=== PATIENT | female | born 1985 | race Caucasian/White ===

== ENCOUNTER 2019-08-18 13:37 | Emergency (ER) | payer SELFPAY ==
[2019-08-18 13:44] VITALS: BP 148/97; PULSE 119; RESP 20; TEMP 37.2; O2SAT 99
--- NOTE | 2019-08-18 14:08 | ED.SKABFB ---
HPI - Skin/Abscess/Foreign Bdy <ROQUE Mendoza - Last Filed: 08/18/19 14:26> General Chief complaint: Skin/Abscess/Foreign Body Stated complaint: right lower leg bites today Time Seen by Provider: 08/18/19 13:44 Source: patient Mode of arrival: Ambulatory Limitations: no limitations History of Present Illness HPI narrative: The patient is a 34-year-old female current everyday smoker who presents with her significant other for chief complaint of a possible spider bite of her right lower leg. She states she knows earlier today, had extending redness. She denies any fevers, complains of subjective chills, no nausea vomiting diarrhea. She denies any chest pain or shortness of breath. 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 Patient refuses consent for triage nurse today test. Related Data Previous Rx's Medication Instructions Recorded cephalexin 500 mg PO TID 10 Days #30 cap 08/18/19 doxycycline hyclate 100 mg PO BID #20 cap 08/18/19 Allergies Allergy/AdvReac Type Severity Reaction Status Date / Time amoxicillin AdvReac Verified 08/18/19 13:50 Review of Systems <JOHNNIE Mendoza - Last Filed: 08/18/19 14:26> Review of Systems Narrative: GENERAL: Denies chills, fatigue, malaise, fever, sweats. HEENT: Denies sinus pain, ear pain, sore throat, difficulty swallowing, dizziness. RESPIRATORY: Denies dyspnea, cough, wheezing, hemoptysis, sputum. CARDIOVASCULAR: Denies chest pain, palpitations, orthopnea, edema, GASTROINTESTINAL: Denies nausea, vomiting, abdominal pain, diarrhea, constipation, melena. : Denies dysuria, frequency, incontinence, hematuria, urinary retention. MUSCULOSKELETAL: denies weakness, joint pain, or bony pain SKIN: See HPI NEUROLOGIC: Denies weakness, headache, numbness, change in speech, confusion, seizures, incoordination. PSYCHIATRIC: No concerning psychosocial issues. 12 point review of systems is negative except for those stated above Patient History <ROQUE Mendoza - Last Filed: 08/18/19 14:26> Social History Smoking Status: Current every day smoker Smoking Status: Current every day smoker alcohol intake frequency: 0-2 drinks per day Substance Use Type: marijuana Exam <JOHNNIE MendozaBC - Last Filed: 08/18/19 14:26> Narrative Exam Narrative: GENERAL: Thin female in no acute distress HEAD: Atraumatic. Normocephalic. No temporal or scalp tenderness. EYES: Pupils equal round and reactive. Extraocular motions intact. No scleral icterus. No injection or drainage. ENT: Nose without bleeding, purulent drainage or septal hematoma. Throat without erythema, tonsillar hypertrophy or exudate. Uvula midline. Airway patent. NECK: Trachea midline. No JVD or lymphadenopathy. Supple, nontender, no meningeal signs. CARDIOVASCULAR: Regular rate and rhythm without murmurs, gallops, or rubs. RESPIRATORY: Clear to auscultation. Breath sounds equal bilaterally. No wheezes, rales, or rhonchi. GASTROINTESTINAL: Abdomen soft, non-tender, nondistended. No hepato-splenomegaly, or palpable masses. No guarding. EXTREMITIES: No clubbing, cyanosis, or edema. No joint tenderness, effusion, or edema noted. Positive pedal pulses bilaterally. See skin exam. Full range of motion of bilateral lower legs. BACK: Nontender without deformity or crepitance. No flank tenderness. NEURO: AOx3. SKIN: Numerous wounds and scratch kapoor noted bilateral extremities both upper and lower, 3 cm erythema lateral aspect of right knee with no palpable fluctuance, 2 mm pustule and middle Initial Vital Signs Initial Vital Signs: Vital Signs Temperature 99.0 F 08/18/19 13:44 Pulse Rate 119 H 08/18/19 13:44 Respiratory Rate 08/18/19 13:44 Blood Pressure 148/97 H 08/18/19 13:44 Pulse Oximetry 99 08/18/19 13:44 <Charli Licea MD - Last Filed: 08/19/19 07:21> Initial Vital Signs Initial Vital Signs: Vital Signs Temperature 99.0 F 08/18/19 13:44 Pulse Rate 119 H 08/18/19 13:44 Respiratory Rate 08/18/19 13:44 Blood Pressure 148/97 H 08/18/19 13:44 Pulse Oximetry 99 08/18/19 13:44 Course <ROQUE Mendoza - Last Filed: 08/18/19 14:26> Vital Signs Vital signs: Vital Signs - 8 hr 08/18/19 13:44 Temperature 99.0 F Pulse Rate 119 H Respiratory Rate 20 Blood Pressure 148/97 H Pulse Oximetry 99 <Charli Licea MD - Last Filed: 08/19/19 07:21> Vital Signs Vital signs: Vital Signs - 8 hr 08/18/19 13:44 Temperature 99.0 F Pulse Rate 119 H Respiratory Rate 20 Blood Pressure 148/97 H Pulse Oximetry 99 MDM - Skin/Abscess/Foreign Bdy <JULITO Mendoza- - Last Filed: 08/18/19 14:26> MDM Narrative Medical decision making narrative: The patient is a 34-year-old female who presents for a chief complaint of a possible spider bite. She has cellulitis on exam with pustule, no obvious or palpable fluctuance or evidence of abscess. Given pustule will treat with doxycycline as well as Keflex in order to cover for MRSA. She has no signs of systemic illness, appears well and nontoxic. I discussed at length coming back to the ER for acute concerns as well as follow-up with primary care provider. Discussed come back to ER for high fevers, signs of systemic illness etcetera. Patient has no questions or concerns upon discharge and states understanding of return precautions as well as follow-up care. Discharge Plan Departure Patient Disposition: Home Clinical Impression: Cellulitis Qualifiers: Site of cellulitis: extremity Site of cellulitis of extremity: lower extremity Laterality: right Qualified Code(s): L03.115 - Cellulitis of right lower limb Discharge Date/Time: 08/18/19 14:18 Instructions: DI for Cellulitis -- Adult Activity Restrictions/Additional Instructions: Thank you for trusting us with your care today I sent two antibiotic prescriptions to [facility] Please take this with a probiotic or yogurt Please monitor for spreading redness, fevers, inability keep down fluids etcetera Please follow-up with primary care provider. I have given you contact information [facility] human resources compensation analyst. Please come back to the emergency department for any acute concerns. Prescriptions: New cephalexin 500 mg capsule 500 mg PO TID 10 Days Qty: 30 RF: 0 doxycycline hyclate 100 mg capsule 100 mg PO BID Qty: 20 RF: 0 Referrals: [facility] Resources [Outside]
== END 2019-08-18 14:18 | disposition home or self-care (01) ==
PROVIDERS: Emergency Provider Nurse Practitioner Family
DX: L03.115 Cellulitis of right lower limb (principal)
CPT/HCPCS: 99281

== ENCOUNTER 2019-09-08 15:42 | Emergency (ER) | payer OTHER, MEDICAID, SELFPAY ==
[2019-09-08] VITALS (11 sets, daily range): BP systolic 91–140; BP diastolic 55–83; PULSE 83–98; RESP 14–27; TEMP 36.6–36.7; O2SAT 98–100; BMI 18.8
--- NOTE | 2019-09-08 15:46 | ED_ITS ---
HPI - General Adult General Chief complaint: Seizure Stated complaint: Witnessed seizure Time Seen by Provider: 09/08/19 15:43 Source: patient, family and EMS Mode of arrival: EMS Limitations: altered mental status History of Present Illness HPI narrative: Patient is a 34-year-old female. Known history of alcohol and drug abuse. Two days ago was discharged after spending several days at [facility] for alcohol withdrawal seizures. Since discharge patient has started drinking again. She denied any other drug or other toxic ingestions. Patient's family arrived today from [place] to help with her medical situation. They were in a hotel parking lot [place] [facility] when the patient had a witnessed seizure. Her mother was standing by her when this event happened. She was helped to the ground. Her mother stated that she did not hit her head. She did bite her tongue. There was no loss of bowel or bladder. Unsure exactly how long the seizure lasted however it did resolve on its own. She did receive IM Valium by EMS prior to arrival. It appears that the patient has had seizures in the past. Many years ago she was on Keppra however according to the patient's mother she was taken off this medicine. Her mother states that it was because the decision was made that her seizures were alcohol withdrawal in nature and not an underlying seizure disorder. Initially patient stated that she did not want to be transferred to any detox or alcohol/drug facility. She denied any SI or HI. Was complaining of nausea upon arrival. Related Data Home Medications Medication Instructions Recorded Confirmed No Known Home Medications 09/08/19 09/08/19 Allergies Allergy/AdvReac Type Severity Reaction Status Date / Time amoxicillin AdvReac Verified 09/08/19 15:47 Review of Systems Constitutional Constitutional: Denies chills, Denies fatigue, Denies fever(s) and Denies headache(s) Eyes Eyes: Denies change in vision ENT Ears, Nose, Mouth, and Throat: Denies dysphagia, Denies vertigo, Denies dizziness and Denies headache(s) Comments: Left-sided tongue pain Cardiovascular Cardiovascular: Denies chest pain Respiratory Respiratory: Denies pain with cough Gastrointestinal Gastrointestinal: Denies abdominal pain, Denies change in bowel habits, Denies dysphagia and Reports nausea Genitourinary Genitourinary: Denies dysuria Genitourinary: Denies dysuria Musculoskeletal Musculoskeletal: Denies arthralgias, Denies back pain, Denies myalgias and Denies numbness Integumentary/Breasts Skin/Breast: Denies lesions and Denies rash Neurologic Neurologic: Reports behavioral changes, Reports confusion, Denies vertigo, Denies dizziness, Denies headache(s), Denies numbness, Reports convulsions and Reports seizure-like activity Psychiatric Psychiatric: Reports behavioral changes, Reports confusion and Denies suicidal ideation Endocrine Endocrine: Denies fatigue Hematologic/Lymphatic Hematologic/Lymphatic: Denies easy bleeding and Denies easy bruising Allergic/Immunologic Allergic/Immunologic: Denies urticaria Patient History Medical History Alcohol withdrawal seizure (Acute) Alcoholism (Acute) Hepatitis C (Acute) Methamphetamine abuse (Acute) Social History Smoking Status: Current every day smoker Smoking Status: Current every day smoker alcohol intake frequency: 0-2 drinks per day Substance Use Type: marijuana Exam Initial Vital Signs Initial Vital Signs: Vital Signs Temperature 97.9 F 09/08/19 15:43 Pulse Rate 92 H 09/08/19 15:43 Respiratory Rate 14 09/08/19 15:43 Blood Pressure 140/83 09/08/19 15:43 Pulse Oximetry 99 09/08/19 15:43 Const General: cooperative Limitations: mental status not altered HENMT Head: normal to inspection and normocephalic Nose: external nose normal Mouth: tongue abnormal (Bite kapoor left-sided time) Teeth and gingiva: dentition normal Throat: posterior oropharynx normal Eyes Pupils: PERRL Resp Effort & Inspection: normal respiratory effort Auscultation: clear to auscultation bilaterally Cardio Rate: regular rate Rhythm: regular rhythm GI Inspection: non-distended Palpation: soft and No tender Back/Spine/Pelvis Back: No CVA tenderness Skin Lesions: no lesions Rashes: no rashes Extrem General: capillary refill normal Psych Appearance: disheveled Scores GCS Haugan coma scale eye opening: Spontaneous Jose coma scale verbal response: Orientated Haugan coma scale motor response: Obey commands Haugan coma scale total score: 15 Course Orders Ordered: ED Orders 09/08/19 15:31 Urinalysis and Microscopic Stat Urine Drug Screen, Rapid Stat 09/08/19 15:50 Acetaminophen Stat Complete Blood Count AUTO DIFF Stat Comprehensive Metabolic Panel Stat Ethanol (ETOH) Stat Lipase Stat Partial Thromboplastin Time Stat Test Serum,Qual Stat Prolactin Stat Prothrombin Time INR Stat Salicylate Stat Thyroid Stimulating Hormone Stat 09/08/19 16:12 Consult to PATIENT CARE TECHNICIAN INSTRUCTOR - Waistline Joiner Stat 09/08/19 17:04 EKG-12 Lead Stat 09/08/19 17:25 Arterial Blood Gas Stat 09/08/19 18:00 Lactate (Lactic Acid) Stat Salicylate Stat 09/08/19 19:40 CT head/brain wo con Stat XR chest 1V Stat 09/08/19 20:24 Basic Metabolic Panel Stat Salicylate Stat Sodium Bicarbonate 150 meq/Potassium Chloride 40 meq/Dextrose 1,170 mls @ 250 mls/hr IV NOW ONE Stop: 09/08/19 22:10 Last Admin: 09/08/19 18:08 Dose: 250 mls/hr Documented by: NICKI Cosigned by: BRANDOOTEM Magnesium Sulfate 2 gm/ Folic Acid 1 mg/ Thiamine HCl 100 mg / Multivitamins 10 ml/ Sodium Chloride 1,015.2 mls @ 125 mls/hr IV NOW ONE Stop: 09/09/19 01:34 Last Admin: 09/08/19 18:09 Dose: 125 mls/hr Documented by: NICKI Discontinued Medications Lorazepam (Ativan) 2 mg IV NOW ONE Stop: 09/08/19 17:19 Last Admin: 09/08/19 17:27 Dose: 2 mg Documented by: CASI Lorazepam (Ativan) 1 mg IV NOW ONE Stop: 09/08/19 17:28 Last Admin: 09/08/19 17:31 Dose: 1 mg Documented by: CASI Ondansetron HCl (Zofran) 4 mg IV NOW ONE Stop: 09/08/19 16:30 Last Admin: 09/08/19 16:35 Dose: 4 mg Documented by: NICKI Vital Signs Vital signs: Vital Signs - 8 hr 09/08/19 15:43 09/08/19 16:00 09/08/19 16:30 Temperature 97.9 F Pulse Rate 92 H 91 H 83 Respiratory Rate 14 24 18 Blood Pressure 140/83 Blood Pressure [Right Arm] 112/58 L 115/63 Pulse Oximetry 99 99 99 09/08/19 17:00 09/08/19 17:38 09/08/19 18:00 Temperature Pulse Rate 83 91 H 92 H Respiratory Rate 20 20 Blood Pressure Blood Pressure [Right Arm] 114/69 125/63 116/65 Pulse Oximetry 100 99 99 09/08/19 18:30 09/08/19 19:00 09/08/19 20:25 Temperature Pulse Rate 87 83 98 H Respiratory Rate 16 27 H 22 Blood Pressure Blood Pressure [Right Arm] 111/64 115/69 91/55 L Pulse Oximetry 98 100 100 09/08/19 20:33 Temperature 98.0 F Pulse Rate 90 Respiratory Rate Blood Pressure Blood Pressure [Right Arm] 125/67 Pulse Oximetry 100 Medical Decision Making Lab Data Lab results reviewed: Yes I reviewed the patient's lab results. Result diagrams: 09/08/19 15:50 09/08/19 20:24 Labs: Lab Results 09/08/19 09/08/19 09/08/19 Range/Units 15:31 15:31 15:50 WBC 6.2 (4.5-11.0) X10^3/uL RBC 3.83 L (4.0-5.2) X10^6/uL Hgb 11.9 L (12.0-16.0) g/dL Hct 35.3 L (36-46) % MCV 92.2 (80-100) fL MCH 31.1 (26-34) PG MCHC 33.7 (30-36) % RDW 18.3 H (11.6-14.8) % Plt Count 298 (150-400) X10^3/uL Neut % (Auto) 64.1 (50-75) % Lymph % (Auto) 25.1 (25-40) % [place] % (Auto) 8.9 (3-14) % Eos % (Auto) 0.9 L (2-4) % Baso % (Auto) 1.0 (0-2) % Neut # (Auto) 4000 (6967-7556) /uL Lymph # (Auto) 1600 (5861-5110) /uL [place] # (Auto) 600 (0-900) /uL Eos # (Auto) 100 (0-450) /uL Baso # (Auto) 100 (0-100) /uL PT (10.1-12.7) SECONDS INR (0.9-1.3) APTT (26.4-36.2) SECONDS ABG pH (7.35-7.45) ABG pCO2 (35-45) mmHg ABG pO2 (80-100) mmHg ABG HCO3 (22-26) mmol/L ABG Total CO2 (21-31) mmol/L ABG O2 Saturation (95-100) % ABG Base Excess (-2-2) mmol/L FiO2 Sodium (137-145) mmol/L Potassium (3.4-5.1) mmol/L Chloride (98-107) mmol/L Carbon Dioxide (22-32) mmol/L BUN (7-17) mg/dL Creatinine (0.52-1.04) mg/dL Estimated GFR (>60) mL/min BUN/Creatinine Ratio (6-22) Glucose (70-100) mg/dL Lactate (0.7-2.1) mmol/L Calcium (8.4-10.2) mg/dL Total Bilirubin (0.2-1.3) mg/dL AST (14-36) IU/L ALT (<35) IU/L Alkaline Phosphatase (38-126) U/L Total Protein (6.3-8.2) g/dL Albumin (3.5-5.0) g/dL Globulin (1.7-4.1) g/dL Albumin/Globulin Ratio (1.0-2.8) Lipase (23-300) U/L TSH (0.47-4.68) uIU/mL Prolactin (3.0-18.6) ng/mL Serum , Qual (Negative) Urine Color Yellow Urine Appearance Clear Urine pH 7.0 (4.5-8.0) Ur Specific [place] 1.010 (1.000-1.035) Urine Protein Negative (Negative) Urine Glucose (UA) Negative (Negative) g/dL Urine Ketones Negative (NEGATIVE) Urine Occult Blood Negative (Negative) Urine Nitrate Negative (Negative) Urine Bilirubin Negative (NEGATIVE) Urine Urobilinogen 0.2 (0.2) E.U./dL Ur Leukocyte Esterase Negative (NEGATIVE) Urine RBC None seen (0-5/HPF) Urine WBC 0-1/hpf (0-5/HPF) Ur Squamous Epith Cells 1-5 /hpf (0-5/HPF) Urine Bacteria None seen (None) Ur Culture Indicated? Cult not indicated Salicylates (<20) mg/dL U Opiates 300ng/mL cut Negative (Negative) Ur Oxycodone Screen Negative (Negative) Urine Methadone Screen Negative (Negative) Acetaminophen (10-30) ug/mL Ur Barbiturates Screen Negative (Negative) U Tricyclic Antidepress Negative (Negative) Ur Phencyclidine Scrn Negative (Negative) Ur Amphetamines Screen Negative (Negative) U Methamphetamines Scrn Positive H (Negative) Ur MDMA Scrn (Ecstasy) Negative (Negative) U Benzodiazepines Scrn Negative (Negative) Urine Cocaine Screen Negative (Negative) U Marijuana (THC) Screen Negative (Negative) Ethyl Alcohol ( - 10) mg/dL COVID-19 PCR (Negative) 09/08/19 09/08/19 09/08/19 Range/Units 15:50 15:50 15:50 WBC (4.5-11.0) X10^3/uL RBC (4.0-5.2) X10^6/uL Hgb (12.0-16.0) g/dL Hct (36-46) % MCV (80-100) fL MCH (26-34) PG MCHC (30-36) % RDW (11.6-14.8) % Plt Count (150-400) X10^3/uL Neut % (Auto) (50-75) % Lymph % (Auto) (25-40) % [place] % (Auto) (3-14) % Eos % (Auto) (2-4) % Baso % (Auto) (0-2) % Neut # (Auto) (5942-1172) /uL Lymph # (Auto) (0529-3989) /uL [place] # (Auto) (0-900) /uL Eos # (Auto) (0-450) /uL Baso # (Auto) (0-100) /uL PT (10.1-12.7) SECONDS INR (0.9-1.3) APTT (26.4-36.2) SECONDS ABG pH (7.35-7.45) ABG pCO2 (35-45) mmHg ABG pO2 (80-100) mmHg ABG HCO3 (22-26) mmol/L ABG Total CO2 (21-31) mmol/L ABG O2 Saturation (95-100) % ABG Base Excess (-2-2) mmol/L FiO2 Sodium 138 (137-145) mmol/L Potassium 4.5 (3.4-5.1) mmol/L Chloride 106 (98-107) mmol/L Carbon Dioxide 17 L (22-32) mmol/L BUN 11 (7-17) mg/dL Creatinine 0.78 (0.52-1.04) mg/dL Estimated GFR > 60.0 (>60) mL/min BUN/Creatinine Ratio 14.1 (6-22) Glucose 95 (70-100) mg/dL Lactate (0.7-2.1) mmol/L Calcium 9.8 (8.4-10.2) mg/dL Total Bilirubin 0.2 (0.2-1.3) mg/dL AST 103 H (14-36) IU/L ALT 153 H (<35) IU/L Alkaline Phosphatase 48 (38-126) U/L Total Protein 8.3 H (6.3-8.2) g/dL Albumin 4.4 (3.5-5.0) g/dL Globulin 3.9 (1.7-4.1) g/dL Albumin/Globulin Ratio 1.1 (1.0-2.8) Lipase 738 H (23-300) U/L TSH 0.86 (0.47-4.68) uIU/mL Prolactin (3.0-18.6) ng/mL Serum , Qual Negative (Negative) Urine Color Urine Appearance Urine pH (4.5-8.0) Ur Specific [place] (1.000-1.035) Urine Protein (Negative) Urine Glucose (UA) (Negative) g/dL Urine Ketones (NEGATIVE) Urine Occult Blood (Negative) Urine Nitrate (Negative) Urine Bilirubin (NEGATIVE) Urine Urobilinogen (0.2) E.U./dL Ur Leukocyte Esterase (NEGATIVE) Urine RBC (0-5/HPF) Urine WBC (0-5/HPF) Ur Squamous Epith Cells (0-5/HPF) Urine Bacteria (None) Ur Culture Indicated? Salicylates 69.2 H* (<20) mg/dL U Opiates 300ng/mL cut (Negative) Ur Oxycodone Screen (Negative) Urine Methadone Screen (Negative) Acetaminophen < 10 L (10-30) ug/mL Ur Barbiturates Screen (Negative) U Tricyclic Antidepress (Negative) Ur Phencyclidine Scrn (Negative) Ur Amphetamines Screen (Negative) U Methamphetamines Scrn (Negative) Ur MDMA Scrn (Ecstasy) (Negative) U Benzodiazepines Scrn (Negative) Urine Cocaine Screen (Negative) U Marijuana (THC) Screen (Negative) Ethyl Alcohol 60 H ( - 10) mg/dL COVID-19 PCR (Negative) 09/08/19 09/08/19 09/08/19 Range/Units 15:50 15:50 17:25 WBC (4.5-11.0) X10^3/uL RBC (4.0-5.2) X10^6/uL Hgb (12.0-16.0) g/dL Hct (36-46) % MCV (80-100) fL MCH (26-34) PG MCHC (30-36) % RDW (11.6-14.8) % Plt Count (150-400) X10^3/uL Neut % (Auto) (50-75) % Lymph % (Auto) (25-40) % [place] % (Auto) (3-14) % Eos % (Auto) (2-4) % Baso % (Auto) (0-2) % Neut # (Auto) (7965-2179) /uL Lymph # (Auto) (9203-4723) /uL [place] # (Auto) (0-900) /uL Eos # (Auto) (0-450) /uL Baso # (Auto) (0-100) /uL PT 11.9 (10.1-12.7) SECONDS INR 1.0 (0.9-1.3) APTT 26 L (26.4-36.2) SECONDS ABG pH 7.50 H (7.35-7.45) ABG pCO2 27.1 L (35-45) mmHg ABG pO2 118 H (80-100) mmHg ABG HCO3 21 L (22-26) mmol/L ABG Total CO2 22 (21-31) mmol/L ABG O2 Saturation 99 (95-100) % ABG Base Excess -2.0 (-2-2) mmol/L FiO2 21 Sodium (137-145) mmol/L Potassium (3.4-5.1) mmol/L Chloride (98-107) mmol/L Carbon Dioxide (22-32) mmol/L BUN (7-17) mg/dL Creatinine (0.52-1.04) mg/dL Estimated GFR (>60) mL/min BUN/Creatinine Ratio (6-22) Glucose (70-100) mg/dL Lactate (0.7-2.1) mmol/L Calcium (8.4-10.2) mg/dL Total Bilirubin (0.2-1.3) mg/dL AST (14-36) IU/L ALT (<35) IU/L Alkaline Phosphatase (38-126) U/L Total Protein (6.3-8.2) g/dL Albumin (3.5-5.0) g/dL Globulin (1.7-4.1) g/dL Albumin/Globulin Ratio (1.0-2.8) Lipase (23-300) U/L TSH (0.47-4.68) uIU/mL Prolactin 75.8 H (3.0-18.6) ng/mL Serum , Qual (Negative) Urine Color Urine Appearance Urine pH (4.5-8.0) Ur Specific [place] (1.000-1.035) Urine Protein (Negative) Urine Glucose (UA) (Negative) g/dL Urine Ketones (NEGATIVE) Urine Occult Blood (Negative) Urine Nitrate (Negative) Urine Bilirubin (NEGATIVE) Urine Urobilinogen (0.2) E.U./dL Ur Leukocyte Esterase (NEGATIVE) Urine RBC (0-5/HPF) Urine WBC (0-5/HPF) Ur Squamous Epith Cells (0-5/HPF) Urine Bacteria (None) Ur Culture Indicated? Salicylates (<20) mg/dL U Opiates 300ng/mL cut (Negative) Ur Oxycodone Screen (Negative) Urine Methadone Screen (Negative) Acetaminophen (10-30) ug/mL Ur Barbiturates Screen (Negative) U Tricyclic Antidepress (Negative) Ur Phencyclidine Scrn (Negative) Ur Amphetamines Screen (Negative) U Methamphetamines Scrn (Negative) Ur MDMA Scrn (Ecstasy) (Negative) U Benzodiazepines Scrn (Negative) Urine Cocaine Screen (Negative) U Marijuana (THC) Screen (Negative) Ethyl Alcohol ( - 10) mg/dL COVID-19 PCR (Negative) 09/08/19 09/08/19 09/08/19 Range/Units 17:34 18:00 18:00 WBC (4.5-11.0) X10^3/uL RBC (4.0-5.2) X10^6/uL Hgb (12.0-16.0) g/dL Hct (36-46) % MCV (80-100) fL MCH (26-34) PG MCHC (30-36) % RDW (11.6-14.8) % Plt Count (150-400) X10^3/uL Neut % (Auto) (50-75) % Lymph % (Auto) (25-40) % [place] % (Auto) (3-14) % Eos % (Auto) (2-4) % Baso % (Auto) (0-2) % Neut # (Auto) (4936-9771) /uL Lymph # (Auto) (6619-0312) /uL [place] # (Auto) (0-900) /uL Eos # (Auto) (0-450) /uL Baso # (Auto) (0-100) /uL PT (10.1-12.7) SECONDS INR (0.9-1.3) APTT (26.4-36.2) SECONDS ABG pH (7.35-7.45) ABG pCO2 (35-45) mmHg ABG pO2 (80-100) mmHg ABG HCO3 (22-26) mmol/L ABG Total CO2 (21-31) mmol/L ABG O2 Saturation (95-100) % ABG Base Excess (-2-2) mmol/L FiO2 Sodium (137-145) mmol/L Potassium (3.4-5.1) mmol/L Chloride (98-107) mmol/L Carbon Dioxide (22-32) mmol/L BUN (7-17) mg/dL Creatinine (0.52-1.04) mg/dL Estimated GFR (>60) mL/min BUN/Creatinine Ratio (6-22) Glucose (70-100) mg/dL Lactate 1.6 (0.7-2.1) mmol/L Calcium (8.4-10.2) mg/dL Total Bilirubin (0.2-1.3) mg/dL AST (14-36) IU/L ALT (<35) IU/L Alkaline Phosphatase (38-126) U/L Total Protein (6.3-8.2) g/dL Albumin (3.5-5.0) g/dL Globulin (1.7-4.1) g/dL Albumin/Globulin Ratio (1.0-2.8) Lipase (23-300) U/L TSH (0.47-4.68) uIU/mL Prolactin (3.0-18.6) ng/mL Serum , Qual (Negative) Urine Color Urine Appearance Urine pH (4.5-8.0) Ur Specific [place] (1.000-1.035) Urine Protein (Negative) Urine Glucose (UA) (Negative) g/dL Urine Ketones (NEGATIVE) Urine Occult Blood (Negative) Urine Nitrate (Negative) Urine Bilirubin (NEGATIVE) Urine Urobilinogen (0.2) E.U./dL Ur Leukocyte Esterase (NEGATIVE) Urine RBC (0-5/HPF) Urine WBC (0-5/HPF) Ur Squamous Epith Cells (0-5/HPF) Urine Bacteria (None) Ur Culture Indicated? Salicylates 72.6 H* (<20) mg/dL U Opiates 300ng/mL cut (Negative) Ur Oxycodone Screen (Negative) Urine Methadone Screen (Negative) Acetaminophen (10-30) ug/mL Ur Barbiturates Screen (Negative) U Tricyclic Antidepress (Negative) Ur Phencyclidine Scrn (Negative) Ur Amphetamines Screen (Negative) U Methamphetamines Scrn (Negative) Ur MDMA Scrn (Ecstasy) (Negative) U Benzodiazepines Scrn (Negative) Urine Cocaine Screen (Negative) U Marijuana (THC) Screen (Negative) Ethyl Alcohol ( - 10) mg/dL COVID-19 PCR Negative (Negative) 09/08/19 Range/Units 20:24 WBC (4.5-11.0) X10^3/uL RBC (4.0-5.2) X10^6/uL Hgb (12.0-16.0) g/dL Hct (36-46) % MCV (80-100) fL MCH (26-34) PG MCHC (30-36) % RDW (11.6-14.8) % Plt Count (150-400) X10^3/uL Neut % (Auto) (50-75) % Lymph % (Auto) (25-40) % [place] % (Auto) (3-14) % Eos % (Auto) (2-4) % Baso % (Auto) (0-2) % Neut # (Auto) (7144-4874) /uL Lymph # (Auto) (1194-0961) /uL [place] # (Auto) (0-900) /uL Eos # (Auto) (0-450) /uL Baso # (Auto) (0-100) /uL PT (10.1-12.7) SECONDS INR (0.9-1.3) APTT (26.4-36.2) SECONDS ABG pH (7.35-7.45) ABG pCO2 (35-45) mmHg ABG pO2 (80-100) mmHg ABG HCO3 (22-26) mmol/L ABG Total CO2 (21-31) mmol/L ABG O2 Saturation (95-100) % ABG Base Excess (-2-2) mmol/L FiO2 Sodium 137 (137-145) mmol/L Potassium 3.8 (3.4-5.1) mmol/L Chloride 104 (98-107) mmol/L Carbon Dioxide 21 L (22-32) mmol/L BUN 15 (7-17) mg/dL Creatinine 0.78 (0.52-1.04) mg/dL Estimated GFR > 60.0 (>60) mL/min BUN/Creatinine Ratio 19.2 (6-22) Glucose 109 H (70-100) mg/dL Lactate (0.7-2.1) mmol/L Calcium 9.4 (8.4-10.2) mg/dL Total Bilirubin (0.2-1.3) mg/dL AST (14-36) IU/L ALT (<35) IU/L Alkaline Phosphatase (38-126) U/L Total Protein (6.3-8.2) g/dL Albumin (3.5-5.0) g/dL Globulin (1.7-4.1) g/dL Albumin/Globulin Ratio (1.0-2.8) Lipase (23-300) U/L TSH (0.47-4.68) uIU/mL Prolactin (3.0-18.6) ng/mL Serum , Qual (Negative) Urine Color Urine Appearance Urine pH (4.5-8.0) Ur Specific [place] (1.000-1.035) Urine Protein (Negative) Urine Glucose (UA) (Negative) g/dL Urine Ketones (NEGATIVE) Urine Occult Blood (Negative) Urine Nitrate (Negative) Urine Bilirubin (NEGATIVE) Urine Urobilinogen (0.2) E.U./dL Ur Leukocyte Esterase (NEGATIVE) Urine RBC (0-5/HPF) Urine WBC (0-5/HPF) Ur Squamous Epith Cells (0-5/HPF) Urine Bacteria (None) Ur Culture Indicated? Salicylates 68.3 H* (<20) mg/dL U Opiates 300ng/mL cut (Negative) Ur Oxycodone Screen (Negative) Urine Methadone Screen (Negative) Acetaminophen (10-30) ug/mL Ur Barbiturates Screen (Negative) U Tricyclic Antidepress (Negative) Ur Phencyclidine Scrn (Negative) Ur Amphetamines Screen (Negative) U Methamphetamines Scrn (Negative) Ur MDMA Scrn (Ecstasy) (Negative) U Benzodiazepines Scrn (Negative) Urine Cocaine Screen (Negative) U Marijuana (THC) Screen (Negative) Ethyl Alcohol ( - 10) mg/dL COVID-19 PCR (Negative) Point of Care Testing Test Results Negative Urine Dip Bedside Urine Glucose Negative Bedside Urine Bilirubin - Negative Bedside Urine Ketone - Negative Urine Specific [place] 1.015 Bedside Urine Occult Blood - Negative Bedside Urine pH 6.5 Bedside Urine Protein - Negative Bedside Urine Urobilinogen - Negative Bedside Urine Nitrite - Negative Bedside Urine Leukocytes - Negative Esterase Point of care testing: Point of Care Testing Test Results Negative Urine Dip Bedside Urine Glucose Negative Bedside Urine Bilirubin - Negative Bedside Urine Ketone - Negative Urine Specific [place] 1.015 Bedside Urine Occult Blood - Negative Bedside Urine pH 6.5 Bedside Urine Protein - Negative Bedside Urine Urobilinogen - Negative Bedside Urine Nitrite - Negative Bedside Urine Leukocytes - Negative Esterase Imaging Data CT scan - head: Radiologist's Impression: [address] [address] [address] Scan Report Signed Patient: Joselyn Sethi [facility]#: [id number] : 1985Acct:[id number] Age/Sex: 34 / FDate of Service: 09/08/19 Loc: ED Accession Number: [id number] Procedure: CT head/brain wo con Ordering Provider: Otoniel Thomas D.O. PROCEDURE: CT HEAD/BRAIN WO CON INDICATIONS: Seizure, altered mental status, TECHNIQUE: Noncontrast 4.5 mm thick angled axial sections acquired from the foramen magnum to the vertex, with coronal and sagittal reformats. For radiation dose reduction, the following was used: automated exposure control, adjustment of mA and/or kV according to patient size. COMPARISON: None. FINDINGS: Image quality: Excellent. CSF spaces: Basal cisterns are patent. No extra-axial fluid collections. Ventricles are normal in size and shape. Brain: No midline shift. No intracranial masses or hemorrhage. Bell-white matter interface is normal. Skull and face: Calvarium and visualized facial bones are intact, without suspicious lesions. Sinuses: Visualized sinuses and mastoids are clear. IMPRESSION: No acute intracranial disease process. Dictated by: Carline Schaeffer MD, PhD on 09/08/2019 at 20:00 Approved by: Carline Schaeffer MD, PhD on 09/08/2019 at 20:01 Chest x-ray: Radiologist's Impression: [address] [address] XRay Report Signed Patient: Joselyn Sethi [facility]#: [id number] : 1985Acct:[id number] Age/Sex: 34 / FDate of Service: 09/08/19 Loc: ED Accession Number: [id number] Procedure: XR chest 1V Ordering Provider: Otoniel Thomas D.O. PROCEDURE: XR CHEST 1V INDICATIONS: Shortness of breath. Eval for pulmonary edema TECHNIQUE: One view of the chest was acquired. COMPARISON: None. FINDINGS: Surgical changes and devices: None. Lungs and pleura: Lungs are clear. No pleural effusions or pneumothorax. Mediastinum: Mediastinal contours appear normal. Heart size is normal. Bones and chest wall: No suspicious bony lesions. Overlying soft tissues appear unremarkable. IMPRESSION: No acute cardiopulmonary disease process. Dictated by: Carline Schaeffer MD, PhD on 09/08/2019 at 19:59 Approved by: Carline Schaeffer MD, PhD on 09/08/2019 at 19:59 [facility] Narrative Medical decision making narrative: Patient was alert and oriented upon arrival. Does have a bite to left side of her tongue which needs no intervention. It was a witnessed seizure. No other signs of trauma. Suspect alcohol withdrawal seizure. Patient did have an elevated salicylate level. Patient denies ingesting any salicylate containing products. Tylenol level was normal. Discussed the case with poison control. Given the level of her restlessly they did recommend starting her on bicarb with potassium which was done. Patient was also given a banana bag. She did have 1 further seizure here in the ER which was self-limiting however she was given 2 mg of Ativan. She was then given a 2nd 1 mg dose of Ativan shortly after secondary to continued agitation. She became much more calm afterwards. Discussed the case with Nephrology and hospitalist at [facility] however given that the repeat salicylate level was higher than the initial they recommended transferring the patient to a facility that had 24 hour dialysis. I then discussed the case with with Nephrology at [facility] who stated that she would be happy to consult on the patient if she was transferred. I then discussed the case with exposure machine operator at [facility] who accepts the patient in transfer. I did discuss the transfer with the patient and her father who is at bedside. They expressed understanding and agreement. Patient is stable for transport. Critical Care Time Critical Care Time Critical Care Time: Yes Total Critical Care Time: 35 Attestation: The high probability of a clinically significant, sudden or life threatening deterioration of the neurologic/renal system(s) required my full and direct attention, intervention and personal management. The aggregate critical care time was 35 minutes. This time is in addition to time spent performing reported procedures but includes the following: [] Data Review and interpretation [] Patient assessment and monitoring of vital signs [] Documentation [] Medication orders and management Discharge Plan Departure Patient Disposition: [place] [facility] Clinical Impression: Seizure, Alcohol abuse Salicylate overdose Qualifiers: Encounter type: initial encounter Injury intent: undetermined intent Qualified Code(s): T39.094A - Poisoning by salicylates, undetermined, initial encounter Prescriptions: No Action No Known Home Medications RF: 0
--- NOTE | 2019-09-08 16:00 | PC.NURSE ---
Pt was found by pt mother with seizure activity with outward look gaze with generalized rigidity to muscle tone with foam coming out from mouth, pt mother states pt was unresponsive with seizure activity lasting approximately 3-5 minutes. Medics state pt was administered 1mg IM Versed during route [employer]. Pt on arrival slow to respond, confused, however directable with instructions. Pt mother at bedside. Seizure pads with suction in place and pt placed on continuous cardiac, pulse-ox, and BP monitoring.
[2019-09-08 16:27] LABS: Bacteria Urine None Seen; RBC Urine None Seen (0-5/HPF)
[2019-09-08 16:28] LABS: Add Manual Diff / Slide Review NO; Basophils Absolute Auto 100 /uL (0-100); Eosinophils Absolute Auto 100 /uL (0-450); Eosinophils Percent Auto 0.9 % (2-4); Hematocrit 35.3 % (36-46); Hemoglobin 11.9 g/dL (12.0-16.0); Lymphocytes Absolute Auto 1600 /uL (1100-4500); Lymphocytes Percent Auto 25.1 % (25-40); Mean Corpuscular HGB Conc 33.7 % (30-36); Mean Corpuscular Hemoglobin 31.1 PG (26-34); Mean Corpuscular Volume 92.2 fL (80-100); Monocytes Absolute Auto 600 /uL (0-900); Monocytes Percent Auto 8.9 % (3-14); Neutrophils Absolute Auto 4000 /uL (1500-7000); Neutrophils Percent Auto 64.1 % (50-75); Platelet Count 298 X10^3/uL (150-400); Red Blood Cell Count 3.83 X10^6/uL (4.0-5.2); Red Cell Distribution Width 18.3 % (11.6-14.8); White Blood Cell Count 6.2 X10^3/uL (4.5-11.0)
[2019-09-08] MEDS: ONDANSETRON 4 MG/2 ML INJ IV (16:35)
[2019-09-08 16:36] LABS: Acetaminophen < 10 ug/mL (10-30); Alanine Aminotransferase 153 IU/L (<35); Albumin 4.4 g/dL (3.5-5.0); Albumin Globulin Ratio 1.1 (1.0-2.8); Alkaline Phosphatase 48 U/L (38-126); Aspartate Aminotransferase 103 IU/L (14-36); BUN Creatinine Ratio 14.1 (6-22); Bilirubin Total 0.2 mg/dL (0.2-1.3); Blood Urea Nitrogen 11 mg/dL (7-17); Calcium 9.8 mg/dL (8.4-10.2); Carbon Dioxide 17 mmol/L (22-32); Chloride 106 mmol/L (98-107); Estimated Glomerular Filt Rate > 60.0 mL/min (>60); Ethanol (ETOH) 60 mg/dL; Globulin 3.9 g/dL (1.7-4.1); Glucose 95 mg/dL (70-100); HEMOLYSIS < 15 (0-50); Lipase 738 U/L (23-300); Potassium 4.5 mmol/L (3.4-5.1); Sodium 138 mmol/L (137-145); Total Protein 8.3 g/dL (6.3-8.2)
[2019-09-08 16:37] LABS: Appearance Urine UA CLEAR; Bilirubin Urine UA NEGATIVE (NEGATIVE); Color Urine UA YELLOW; Glucose Urine UA NEGATIVE (Negative); Ketones Urine UA NEGATIVE (NEGATIVE); Leukocyte Esterase Urine UA NEGATIVE (NEGATIVE); Nitrite Urine UA NEGATIVE (Negative); Occult Blood Urine UA NEGATIVE (Negative); Protein Urine UA NEGATIVE (Negative); Urobilinogen Urine UA 0.2 E.U./dL (0.2)
[2019-09-08 16:43] LABS: Pregnancy Test Serum,Qual Negative (Negative)
[2019-09-08 16:45] LABS: UR Morphine/Opiate cutoff 300 Negative (Negative); Ur Creatinine Normal (Normal); Ur Specific Gravity Normal (Normal); Urine Amphetamines Negative (Negative); Urine Barbiturates Negative (Negative); Urine Benzodiazepines Negative (Negative); Urine Cocaine Negative (Negative); Urine MDMA Negative (Negative); Urine Methadone Negative (Negative); Urine Methamphetamines Positive (Negative); Urine Oxycodone Negative (Negative); Urine Phencyclidine Negative (Negative); Urine Tetrahydrocannabinol Negative (Negative); Urine Tricyclic Antidepressant Negative (Negative); Urine pH Normal (Normal)
--- NOTE | 2019-09-08 16:46 | PC.NURSE ---
Pt began to vomit of bilious/clear emesis, ED provider Dr. Thomas made aware and pt medicated with IV Zofran as ordered, see MAR. VSS and noted, will continue to monitor.
[2019-09-08 16:48] LABS: Culture Indicated Urine Cult Not Indicated; Squamous Epithelial Cell Urine 1-5 /HPF (0-5/HPF); WBC Urine 0-1/HPF (0-5/HPF)
[2019-09-08 16:51] LABS: Salicylate 69.2 mg/dL (<20)
[2019-09-08 16:53] LABS: Prolactin 75.8 ng/mL (3.0-18.6)
[2019-09-08 17:06] LABS: Thyroid Stimulating Hormone 0.86 uIU/mL (0.47-4.68)
[2019-09-08 17:14] LABS: Prothrombin Time 11.9 SECONDS (10.1-12.7)
[2019-09-08 17:16] LABS: PTT Partial Thromboplastin Tim 26 SECONDS (26.4-36.2)
[2019-09-08] MEDS: LORazepam 2 MG/ML INJ IV (17:27)
[2019-09-08] MEDS: LORazepam 2 MG/ML INJ 1 MG IV (17:31)
--- NOTE | 2019-09-08 17:45 | PC.NURSE ---
After RT completed 12 lead ECG and obtained blood gas pt noted with tonic-clonic seizure lasting approximately 1 minute. Seizure pads were in place along with suction, pt appears to be hallucinating, appears to be unaware of her hand while looking at her fingers and screams out when lightly approached by staff for patient care. ED provider was made aware and pt medicated for seizure as ordered, see MAY. 2nd IV placed of 18g to L upper forearm, saline locked. Pt and pt mother updated on plan of care, VSS and noted, will continue to monitor.
[2019-09-08] MEDS: SODIUM BICARB 8.4% VIAL 150 MEQ, POTASSIUM CHLORIDE 40 MEQ in DEXTROSE 5% WATER 1,000 ML 250 MEQ IV (18:08)
[2019-09-08] MEDS: MAGNESIUM SULFATE 2 GM, FOLIC ACID 1 MG, THIAMINE 100 MG, MULTIVITAMIN 10 ML in SODIUM ... IV (18:09)
[2019-09-08 18:14] LABS: PCO2 ABG 27.1 mmHg (35-45); PO2 ABG 118 mmHg (80-100)
[2019-09-08 18:15] LABS: Fractionated Inspired Oxygen 21; HCO3 ABG 21 mmol/L (22-26); Oxygen Saturation ABG 99 % (95-100); TCO2 ABG 22 mmol/L (21-31)
--- NOTE | 2019-09-08 18:25 | PC.NURSE ---
Pt now resting comfortably on stretcher, is directed to place and situation and both mother and pt aware of plan of care for potential transfer. VSS and noted, IV medications infusing as ordered, see MAR. Will continue to monitor.
[2019-09-08 18:34] LABS: Salicylate 72.6 mg/dL (<20)
[2019-09-08 18:35] LABS: Lactate (Lactic Acid) 1.6 mmol/L (0.7-2.1)
--- NOTE | 2019-09-08 18:49 | PC.NURSE ---
[facility] intensive [facility] declined pt as they feel 24 hour access to dialysis is in the pt's best interest. [facility] supervisor [employer] aware, gratefully declined bed.
--- NOTE | 2019-09-08 19:27 | PC.NURSE ---
Pt mother Annabelle eSthi # [phone]. Pt father Arnel Sethi # [phone]. Either one would like to be contacted prior to pt transfer for continued care.
--- NOTE | 2019-09-08 19:40 | DI.RAD.S_ITS ---
PROCEDURE: XR CHEST 1V INDICATIONS: Shortness of breath. Eval for pulmonary edema TECHNIQUE: One view of the chest was acquired. COMPARISON: None. FINDINGS: Surgical changes and devices: None. Lungs and pleura: Lungs are clear. No pleural effusions or pneumothorax. Mediastinum: Mediastinal contours appear normal. Heart size is normal. Bones and chest wall: No suspicious bony lesions. Overlying soft tissues appear unremarkable. IMPRESSION: No acute cardiopulmonary disease process. Dictated by: Carline Schaeffer MD, PhD on 09/08/2019 at 19:59 Approved by: Carline Schaeffer MD, PhD on 09/08/2019 at 19:59
--- NOTE | 2019-09-08 19:40 | DI.CT.S_ITS ---
PROCEDURE: CT HEAD/BRAIN WO CON INDICATIONS: Seizure, altered mental status, TECHNIQUE: Noncontrast 4.5 mm thick angled axial sections acquired from the foramen magnum to the vertex, with coronal and sagittal reformats. For radiation dose reduction, the following was used: automated exposure control, adjustment of mA and/or kV according to patient size. COMPARISON: None. FINDINGS: Image quality: Excellent. CSF spaces: Basal cisterns are patent. No extra-axial fluid collections. Ventricles are normal in size and shape. Brain: No midline shift. No intracranial masses or hemorrhage. Bell-white matter interface is normal. Skull and face: Calvarium and visualized facial bones are intact, without suspicious lesions. Sinuses: Visualized sinuses and mastoids are clear. IMPRESSION: No acute intracranial disease process. Dictated by: Carline Schaeffer MD, PhD on 09/08/2019 at 20:00 Approved by: Carline Schaeffer MD, PhD on 09/08/2019 at 20:01
[2019-09-08 20:31] LABS: COVID19 -Nasal RAPID Negative (Negative)
[2019-09-08 20:42] LABS: BUN Creatinine Ratio 19.2 (6-22); Blood Urea Nitrogen 15 mg/dL (7-17); Calcium 9.4 mg/dL (8.4-10.2); Carbon Dioxide 21 mmol/L (22-32); Chloride 104 mmol/L (98-107); Estimated Glomerular Filt Rate > 60.0 mL/min (>60); Glucose 109 mg/dL (70-100); HEMOLYSIS < 15 (0-50); Potassium 3.8 mmol/L (3.4-5.1); Sodium 137 mmol/L (137-145)
[2019-09-08 20:52] LABS: Salicylate 68.3 mg/dL (<20)
--- NOTE | 2019-09-08 21:30 | PC.NURSE ---
[facility] of poison control called was updated on pt plan of care, VS, Meds and Lab values, if time allows prior to transfer blood gas repeat recommended by Dr.Curran Juanjose updated.
[2019-09-08 22:09] LABS: HCO3 VBG 23 mmol/L (23-28); Oxygen Saturation VBG 86 % (70-75); PCO2 VBG 26.5 mmHg (45-50); PO2 VBG 43 mmHg (35-45); Total CO2 VBG 24 mmol/L (24-29); pH VBG 7.55 (7.33-7.43)
== END 2019-09-08 22:00 | disposition short-term general hospital (02) ==
PROVIDERS: Emergency Medicine; Emergency Provider Emergency Medicine
DX: T39.094A Poisoning by salicylates, undetermined, initial encounter (principal); R56.9 Unspecified convulsions; R06.02 Shortness of breath; F10.10 Alcohol abuse, uncomplicated
CPT/HCPCS: 36415; 36600; 70450; 71045; 80048; 80053; 80305; 80320; 80329; 81001; 81003; 81025; 82805; 83605; 83690; 84146; 84443; 84703; 85025; 85610; 85730; 87635; 93005; 96361; 96374; 96375; 99285; 99291; G0480; J2060; J2405; J3475; J3480

== ENCOUNTER 2020-06-27 19:32 | Inpatient (IN) | payer OTHER, MEDICAID, SELFPAY ==
--- NOTE | 2020-06-27 19:43 | DI.CT.S_ITS ---
PROCEDURE: CT CERVICAL SPINE WO CON INDICATIONS: fall 30 feet from tree TECHNIQUE: Noncontrast 3 mm thick sections acquired from the skull base to the T4 level. Sagittal and coronal reformats were then constructed. For radiation dose reduction, the following was used: automated exposure control, adjustment of mA and/or kV according to patient size. COMPARISON: None. FINDINGS: Image quality: Excellent. Bones: No fractures or dislocations. Visualized superior ribs are intact. Soft tissues: Prevertebral soft tissues are normal in thickness. No paravertebral hematomas. No apical pneumothoraces. IMPRESSION: Normal cervical spine. Dictated by: Paulino Lugo M.D. on 06/27/2020 at 21:15 Approved by: Paulino Lugo M.D. on 06/27/2020 at 21:17
--- NOTE | 2020-06-27 19:43 | DI.CT.S_ITS ---
PROCEDURE: CT CHEST ABD PEL W CON INDICATIONS: fall 30 feet from tree TECHNIQUE: After the administration of intravenous contrast, 5 mm thick sections acquired from the lung apices to the symphysis. 2.5 mm thick coronal and sagittal reformats were acquired. Additional 7 mm thick coronal maximum intensity projection (MIP) reformats acquired through the lungs. Optional 10-minute delayed imaging may be performed from the kidneys to the bladder. For radiation dose reduction, the following was used: automated exposure control, adjustment of mA and/or kV according to patient size. COMPARISON: None. FINDINGS: Image quality: Excellent. CHEST: Lungs: No pulmonary contusions or lacerations. No acute airspace opacities. No pneumothorax or hemothorax. Central and peripheral airways appear patent and normal in caliber. Mediastinum: No mediastinal hematomas. Heart size is normal. No pericardial effusion. Thoracic aorta and pulmonary arteries demonstrate normal size and enhancement. No mediastinal or hilar adenopathy. Esophagus is normal in caliber. No hiatal hernia. Chest wall: No rib fractures. No subcutaneous emphysema. No axillary or supraclavicular adenopathy. Thyroid gland is normal. ABDOMEN: Solid organs: Liver is normal in size and enhancement, without lacerations. Gallbladder is normal. Biliary system is non-dilated. Pancreas enhances normally, without transection. Spleen is normal in size and enhancement, without lacerations. No adrenal hematomas. Both kidneys enhance normally, without hydronephrosis or lacerations. Peritoneum and bowel: No free fluid or air. Unenhanced bowel loops demonstrate normal wall thickness and caliber. Nodes and vessels: No retroperitoneal or mesenteric adenopathy. Aorta and inferior vena cava are normal in size and enhancement. Miscellaneous: No ventral hernias. PELVIS: Genitourinary: Bladder wall thickness is normal. There is an IUD in the uterus. Miscellaneous: No inguinal hernias or adenopathy. Bones: Pelvic ring and hip joints appear intact. No vertebral compression fractures. IMPRESSION: 1. No acute abnormality of the chest, abdomen, or pelvis. 2. Hepatic steatosis. Dictated by: Paulino Lugo M.D. on 06/27/2020 at 21:17 Approved by: Paulino Lugo M.D. on 06/27/2020 at 21:23
--- NOTE | 2020-06-27 19:44 | DI.CT.S_ITS ---
PROCEDURE: CT HEAD/BRAIN WO CON INDICATIONS: fall 30 feet from tree TECHNIQUE: Noncontrast 4.5 mm thick angled axial sections acquired from the foramen magnum to the vertex, with coronal and sagittal reformats. For radiation dose reduction, the following was used: automated exposure control, adjustment of mA and/or kV according to patient size. COMPARISON: [facility], CT, CT HEAD/BRAIN WO CON, 09/08/2019, 19:38. FINDINGS: Image quality: Excellent. CSF spaces: Basal cisterns are patent. No extra-axial fluid collections. Ventricles are normal in size and shape. Brain: No midline shift. No intracranial masses or hemorrhage. Bell-white matter interface is normal. Skull and face: Calvarium and visualized facial bones are intact, without suspicious lesions. Sinuses: Visualized sinuses and mastoids are clear. IMPRESSION: No acute intracranial abnormality. Dictated by: Paulino Lugo M.D. on 06/27/2020 at 21:12 Approved by: Paulino Lugo M.D. on 06/27/2020 at 21:14
[2020-06-27 19:59] LABS: Add Manual Diff / Slide Review NO; Basophils Absolute Auto 100 /uL (0-100); Basophils Percent Auto 0.9 % (0-2); Eosinophils Absolute Auto 0 /uL (0-450); Eosinophils Percent Auto 0.2 % (2-4); Hematocrit 35.3 % (36-46); Hemoglobin 11.7 g/dL (12.0-16.0); Lymphocytes Absolute Auto 2000 /uL (1100-4500); Mean Corpuscular HGB Conc 33.2 % (30-36); Mean Corpuscular Hemoglobin 29.4 PG (26-34); Mean Corpuscular Volume 88.5 fL (80-100); Monocytes Absolute Auto 1100 /uL (0-900); Monocytes Percent Auto 7.6 % (3-14); Neutrophils Absolute Auto 10800 /uL (1500-7000); Neutrophils Percent Auto 77.3 % (50-75); Platelet Count 459 X10^3/uL (150-400); Red Blood Cell Count 3.98 X10^6/uL (4.0-5.2); Red Cell Distribution Width 17.1 % (11.6-14.8)
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
[2020-06-27 20:13] LABS: Acetaminophen < 10 ug/mL (10-30); Alanine Aminotransferase 108 IU/L (<35); Albumin 4.4 g/dL (3.5-5.0); Albumin Globulin Ratio 1.2 (1.0-2.8); Alkaline Phosphatase 71 U/L (38-126); Aspartate Aminotransferase 174 IU/L (14-36); BUN Creatinine Ratio 19.4 (6-22); Bilirubin Total 0.5 mg/dL (0.2-1.3); Blood Urea Nitrogen 14 mg/dL (7-17); Carbon Dioxide 25 mmol/L (22-32); Chloride 105 mmol/L (98-107); Estimated Glomerular Filt Rate > 60.0 mL/min (>60); Ethanol (ETOH) 205 mg/dL; Globulin 3.8 g/dL (1.7-4.1); Glucose 102 mg/dL (70-100); HEMOLYSIS < 15 (0-50); Lipase 72 U/L (23-300); Potassium 4.3 mmol/L (3.4-5.1); Salicylate < 1.0 mg/dL (<20); Sodium 141 mmol/L (137-145); Total Protein 8.2 g/dL (6.3-8.2)
[2020-06-27] MEDS: SODIUM CHLORIDE 0.9% 1,000 ML 150 ML IV (20:19)
[2020-06-27] MEDS: LORazepam 2 MG/ML INJ 1 MG IV ×2 (20:20→21:52)
[2020-06-27 20:24] LABS: Troponin I < 0.012 ng/mL (0.01-0.034)
[2020-06-27 20:25] LABS: Pregnancy Test Serum,Qual Negative (Negative)
[2020-06-27 20:33] LABS: Creatine Kinase 4358 U/L (30-135)
[2020-06-27 20:43] LABS: CKMB % Relative Index 0.7 % (1.5-5.0)
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
[2020-06-27] MEDS: SODIUM CHLORIDE 0.9% 1,000 ML 2000 ML IV (21:50)
[2020-06-27] MEDS: KETOROLAC 60 MG/2 ML VIAL 15 MG IV (21:51)
[2020-06-27 21:58] VITALS: PULSE 90; O2SAT 99
[2020-06-27 22:00] VITALS: BP 142/73; PULSE 92; O2SAT 99
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
[2020-06-27 22:30] VITALS: PULSE 104; O2SAT 99
[2020-06-27 23:00] VITALS: PULSE 100; O2SAT 99
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
[2020-06-27 23:30] VITALS: PULSE 94; O2SAT 96
[2020-06-27 23:50] LABS: COVID19 -Nasal RAPID Negative (Negative)
[2020-06-27 23:58] LABS: WBC Urine None Seen (0-5/HPF)
[2020-06-28] VITALS (12 sets, daily range): BP systolic 124–155; BP diastolic 66–90; PULSE 67–99; RESP 15–22; TEMP 36.3–36.8; O2SAT 98–100
[2020-06-28 00:01] LABS: Creatine Kinase 4688 U/L (30-135)
[2020-06-28] MEDS: SODIUM CHLORIDE 0.9% 1,000 ML 200 ML IV ×3 (00:04→13:53)
[2020-06-28 00:06] LABS: Bacteria Urine Few (2-10); Culture Indicated Urine Cult Not Indicated; RBC Urine 1-5/HPF (0-5/HPF); Squamous Epithelial Cell Urine 1-5 /HPF (0-5/HPF); Ur Creatinine Normal (Normal); Ur Specific Gravity Normal (Normal); Urine pH Normal (Normal)
[2020-06-28 00:07] LABS: UR Morphine/Opiate cutoff 300 Negative (Negative); Urine Amphetamines Positive (Negative); Urine Barbiturates Negative (Negative); Urine Benzodiazepines Negative (Negative); Urine Cocaine Negative (Negative); Urine MDMA Negative (Negative); Urine Methadone Negative (Negative); Urine Methamphetamines Positive (Negative); Urine Oxycodone Negative (Negative); Urine Phencyclidine Negative (Negative); Urine Tetrahydrocannabinol Positive (Negative); Urine Tricyclic Antidepressant Negative (Negative)
--- NOTE | 2020-06-28 00:39 | PC.NURSE ---
Due to patients elevated lab work, does not meet medical clearance for detox. Patient updated on plan of admission. Deputy Kang at bedside providing contact information for patient. Deputy Kang (Impact Team) can be reached at [phone] dispatch for assistance with patient placement in [facility].
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
[2020-06-28] MEDS: MORPHINE 2 MG/ML INJ IV (01:27)
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
[2020-06-28 03:44] LABS: Magnesium 2.1 mg/dL (1.6-2.3)
[2020-06-28] MEDS: LORazepam 2 MG/ML INJ IV ×2 (04:17→15:23)
[2020-06-28] MEDS: OXYCODONE IR 5 MG TABLET PO ×3 (04:17→19:00)
[2020-06-28] MEDS: MAGNESIUM SULFATE 2 GM, FOLIC ACID 1 MG, THIAMINE 100 MG, MULTIVITAMIN 10 ML in SODIUM ... IV (04:32)
[2020-06-28 05:22] LABS: Add Manual Diff / Slide Review NO; Basophils Absolute Auto 100 /uL (0-100); Basophils Percent Auto 0.9 % (0-2); Eosinophils Absolute Auto 200 /uL (0-450); Hematocrit 30.5 % (36-46); Hemoglobin 10.3 g/dL (12.0-16.0); Lymphocytes Absolute Auto 2500 /uL (1100-4500); Lymphocytes Percent Auto 28.6 % (25-40); Mean Corpuscular HGB Conc 33.7 % (30-36); Mean Corpuscular Hemoglobin 30.2 PG (26-34); Mean Corpuscular Volume 89.6 fL (80-100); Monocytes Absolute Auto 1000 /uL (0-900); Monocytes Percent Auto 11.2 % (3-14); Neutrophils Absolute Auto 5000 /uL (1500-7000); Neutrophils Percent Auto 57.3 % (50-75); Platelet Count 324 X10^3/uL (150-400); Red Cell Distribution Width 17.1 % (11.6-14.8); White Blood Cell Count 8.7 X10^3/uL (4.5-11.0)
[2020-06-28 05:26] LABS: Alanine Aminotransferase 76 IU/L (<35); Albumin 3.2 g/dL (3.5-5.0); Albumin Globulin Ratio 1.1 (1.0-2.8); Alkaline Phosphatase 55 U/L (38-126); Aspartate Aminotransferase 134 IU/L (14-36); Bilirubin Total 0.6 mg/dL (0.2-1.3); Blood Urea Nitrogen 17 mg/dL (7-17); Calcium 8.1 mg/dL (8.4-10.2); Carbon Dioxide 24 mmol/L (22-32); Chloride 106 mmol/L (98-107); Estimated Glomerular Filt Rate > 60.0 mL/min (>60); Glucose 127 mg/dL (70-100); HEMOLYSIS < 15 (0-50); Potassium 3.5 mmol/L (3.4-5.1); Sodium 136 mmol/L (137-145); Total Protein 6.2 g/dL (6.3-8.2)
[2020-06-28 05:36] LABS: Creatine Kinase 3104 U/L (30-135)
--- NOTE | 2020-06-28 06:43 | PC.NURSE ---
Admit/Night Note-Patient brought to ICU room 227 at 0305, drowsy, oriented, cooperative but impulsive and mildly 'twitchy' Transfers with 1 person assist. Has multiple lacerations, abrasions, and scratches, mostly to extremeties, see Skin Assessments and documentation notes, no drainage. 5mg oxycodone given for pain, 1mg IV Ativan given for CIWA 9, mostly anxiety, restlessness, and headache. Banana bag infusing, seizure pads on rails. Clothes, boots, cell phone, and jewlery in room.
[2020-06-28] MEDS: ENOXAPARIN 40 MG/0.4 ML SYRINGE SUBCUT (08:39)
[2020-06-28] MEDS: THIAMINE 100 MG TABLET PO (08:39)
[2020-06-28] MEDS: ACETAMINOPHEN 325 MG TABLET 650 MG PO ×2 (08:39→14:36)
[2020-06-28] MEDS: MULTIVITAMIN 1 TABLET 1 TAB PO (08:40)
[2020-06-28] MEDS: FOLIC ACID 1 MG TABLET PO (08:40)
[2020-06-28] MEDS: LORazepam 1 MG TABLET PO ×5 (08:41→19:03)
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
[2020-06-28 16:59] LABS: Creatine Kinase 3903 U/L (30-135)
[2020-06-28] MEDS: QUETIAPINE 100 MG TABLET 400 MG PO (20:39)
[2020-06-28] MEDS: chlordiazePOXIDE 10 MG CAPSULE PO (20:39)
[2020-06-28] MEDS: DOCUSATE 100 MG CAPSULE PO (20:39)
[2020-06-28] MEDS: SODIUM CHLORIDE 0.9% 1,000 ML 100 ML IV (21:30)
[2020-06-29] VITALS (9 sets, daily range): BP systolic 126–145; BP diastolic 70–95; PULSE 77–100; RESP 15–20; TEMP 36.3–36.8; O2SAT 98–99
[2020-06-29] MEDS: LORazepam 2 MG/ML INJ IV ×2 (01:53→02:42)
[2020-06-29] MEDS: OXYCODONE IR 5 MG TABLET PO ×2 (02:41→17:46)
[2020-06-29 05:13] LABS: Creatine Kinase 2127 U/L (30-135)
[2020-06-29] MEDS: SODIUM CHLORIDE 0.9% 1,000 ML 100 ML IV (07:36)
[2020-06-29] MEDS: FOLIC ACID 1 MG TABLET PO (09:47)
[2020-06-29] MEDS: MULTIVITAMIN 1 TABLET 1 TAB PO (09:47)
[2020-06-29] MEDS: THIAMINE 100 MG TABLET PO (09:47)
[2020-06-29] MEDS: DOCUSATE 100 MG CAPSULE PO ×2 (09:47→20:12)
[2020-06-29] MEDS: chlordiazePOXIDE 25 MG CAPSULE PO ×3 (09:47→20:13)
[2020-06-29] MEDS: LORazepam 2 MG/ML INJ 1 MG IV (09:47)
[2020-06-29] MEDS: LORazepam 1 MG TABLET PO (10:32)
--- NOTE | 2020-06-29 12:42 | PC.NURSE ---
Rec'd pt in bed awake, anxious and asking for IV to be removed so she can leave the hospital. Provided reorientation to rationale re cont. need for hospitalization. Pt verbalized understanding, disagreed with rationale, and demanded this RN remove IV. I'm going to count to 10. Requested pt allow staff time to change shifts, which she reluctantly agreed to. Upon re-entering room, pt was noted to be sleeping with even/unlabored RR. Allowing pt to rest for now and will reassess when awake. Woke pt for hospitalist rounds (~0930). Pt is impulsive due to needing to void. After returning to bed, pt is upset. States staff are keeping her here against her will. Assured pt that staff are not able to keep her against her will and that she is free to leave at any time. Reassured pt that she is in a safe place, reviewed plan of care, offered foods/fluids and emotional support. Initially rating CIWA 4, unable to provide PRN rx. Rec'd one time order for 1 mg IV ativan. Adminstered this as well as PO librium per hospitalist order. Pt was noted to have increased anxiety and was rated 8 on CIWA protocol. Gave add'l PO ativan. Post med administration pt was about to sleep about 2 hours. Pt woke and requested some heavy duty medications. At this time, pt denies hallucinations, visual/tactile disturbance, she is answering the date correctly and understands she is in the hospital. She states that she is not having alcohol withdrawal symptoms but states I'm scared and states If you expect me to stay here you're going to have to make sure I'm asleep. Reviewed assessment findings with hospitalist and reported pts request for heavy duty medications. Utilizing bed alarm, non slip socks, and room close to RN station.
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
[2020-06-29] MEDS: QUETIAPINE 100 MG TABLET 200 MG PO (14:36)
[2020-06-29] MEDS: NICOTINE 21 MG PATCH TOP (14:36)
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
[2020-06-29] MEDS: ACETAMINOPHEN 325 MG TABLET 650 MG PO (17:45)
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
[2020-06-29] MEDS: QUETIAPINE 25 MG TABLET 50 MG PO (20:12)
[2020-06-30 00:22] VITALS: BP 132/81; PULSE 74; RESP 18; TEMP 36.4; O2SAT 100
[2020-06-30 06:04] VITALS: BP 119/70; PULSE 87; RESP 16; TEMP 36.6; O2SAT 99
[2020-06-30] MEDS: OXYCODONE IR 5 MG TABLET PO (06:15)
[2020-06-30] MEDS: MULTIVITAMIN 1 TABLET 1 TAB PO (09:17)
[2020-06-30] MEDS: chlordiazePOXIDE 25 MG CAPSULE PO (09:17)
[2020-06-30] MEDS: FOLIC ACID 1 MG TABLET PO (09:17)
[2020-06-30] MEDS: THIAMINE 100 MG TABLET PO (09:17)
[2020-06-30] MEDS: QUETIAPINE 25 MG TABLET 50 MG PO (09:17)
[2020-06-30] MEDS: DOCUSATE 100 MG CAPSULE PO (09:17)
[2020-06-30] MEDS: NICOTINE 21 MG PATCH TOP (09:18)
[2020-06-30 10:00] VITALS: BP 143/80; PULSE 89; RESP 17; TEMP 36.8; O2SAT 97
[2020-06-30 13:00] VITALS: BP 120/59; PULSE 91; RESP 19; TEMP 36.6; O2SAT 99
--- NOTE | 2020-06-30 16:44 | CM.SWNOTE ---
EXTRAS CASTING DIRECTOR Note Patient much improved medically and mentally today. DC order placed. Patient allowed this EXTRAS CASTING DIRECTOR to connect her with [employer] [facility] rep Bruna, sat w/patient during screening process, per her request. According to Bruna through [facility], there is available space for patient in safe emergency long term in [place]. Patient would need transportation to [facility] in [place] and would be transported to a confidential location. This EXTRAS CASTING DIRECTOR attempted to get patient's prescriptions filled at [place] pharmacy and they were closed today. Attempted [facility] pharmacy in [place] and they had the Rx filled but would need patient's [employer] ID card to get the Rx number, policy number did not work to fill RX. According to patient, [employer] card was coming in the mail. Patient asked if her belongings could be delivered, this EXTRAS CASTING DIRECTOR suggested bf Eddie drop them off at [employer]'s office because she would be at a confidential location and he did not drop them off at today This EXTRAS CASTING DIRECTOR in collaboration w/mom Annabelle were able to secure [employer] taxi ride to [facility] this afternoon. Patient left w/physical prescriptions in hand, possibly w/no way to fill at this time ( Insurance card?) According to Bruna at [facility], meet up happened, and they might be able to pay for patient's scripts if she can take the bus to pick them up. Plan: taxi arranged to take patient from to meet up location for assist and transport to secure and safe [facility] long term, patient agreeable to this. Mom hopeful to get patient back up to [place] in the near future MADISYN Silva
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
== END 2020-06-30 15:35 | disposition home or self-care (01) | DRG 351 ==
LOC: ED 06-28 01:44 → ICU 06-28 06:14 → AC 06-28 12:20 → ICU 06-28 12:20
PROVIDERS: Internal Medicine; Admitting Provider Nurse Practitioner Adult Health; Emergency Provider Emergency Medicine; Visit Provider Nurse Practitioner Adult Health
DX: T79.6XXA Traumatic ischemia of muscle, initial encounter (principal); F10.239 Alcohol dependence with withdrawal, unspecified; K70.0 Alcoholic fatty liver; T74.11XA Adult physical abuse, confirmed, initial encounter; F15.10 Other stimulant abuse, uncomplicated; E44.0 Moderate protein-calorie malnutrition; Z68.1 Body mass index [BMI] 19.9 or less, adult; F10.229 Alcohol dependence with intoxication, unspecified; F31.30 Bipolar disorder, current episode depressed, mild or moderate severity, unspecified; Y90.7 Blood alcohol level of 200-239 mg/100 ml; R07.89 Other chest pain; M25.552 Pain in left hip; M25.551 Pain in right hip; S81.812A Laceration without foreign body, left lower leg, initial encounter; S81.811A Laceration without foreign body, right lower leg, initial encounter; S41.112A Laceration without foreign body of left upper arm, initial encounter; S41.111A Laceration without foreign body of right upper arm, initial encounter; W17.89XA Other fall from one level to another, initial encounter; Z20.822 Contact with and (suspected) exposure to COVID-19
CPT/HCPCS: 36415; 36592; 70450; 71250; 71260; 72125; 74177; 80053; 80305; 80320; 80329; 81003; 81015; 82550; 82553; 83690; 83735; 84484; 84703; 85025; 87635; 87797; 90792; 96361; 96374; 96375; 96376; 97161; 99285; 99406; C9803; G0480; J1650; J1885; J2060; J2270; J3475